=== PATIENT | male | born 2000 | race African-American/Black ===

== ENCOUNTER 2023-05-29 15:33 | Outpatient (REF) | payer OTHER, SELFPAY ==
--- NOTE | ~2023-05-29 | XR_ITS ---
EXAMINATION: XR LUMBOSACRAL SPINE CLINICAL INFORMATION: Acute midline back pain without sciatica COMPARISON: None available. TECHNIQUE: Three views of the lumbosacral spine. FINDINGS: The vertebral bodies and posterior elements are normal. The disc spaces are preserved and the vertebral alignment is normal. The paraspinal soft tissues are normal. XR/XR lumbar spine 2-3V IMPRESSION: Unremarkable examination.
== END 2023-05-29 15:34 | disposition home or self-care (01) ==
LOC: HO.HHCX 15:33
PROVIDERS: Visit Provider Family Medicine
DX: M54.50 Low back pain, unspecified (principal)
CPT/HCPCS: 72100

== ENCOUNTER 2024-02-26 09:02 | Outpatient (REF) | payer SELFPAY ==
[2024-02-26 11:13] LABS: MANUAL DIFF FLAG NO
[2024-02-26 11:23] LABS: Basophils Absolute Auto 0.1 X10*3/uL (0.0-0.2); Basophils Percent Auto 0.7 % (0-2); Eosinophils Absolute Auto 0.1 X10*3/uL (0.0-0.4); Hematocrit 42.6 % (42.0-52.0); Hemoglobin 14.5 g/dl (14.0-18.0); Imm Gran Abs Auto 0.02 X10*3/uL (0.00-0.03); Imm Gran Pct Auto 0.3 % (0.0-0.4); Lymphocytes Absolute Auto 2.4 X10*3/uL (1.2-4.9); Lymphocytes Percent Auto 33.8 % (20-40); Mean Corpuscular Hemoglobin 29.4 pg (27.0-33.0); Mean Corpuscular Volume 86.4 fL (80.0-98.0); Mean Platelet Volume 11.5 fL (9.4-12.4); Monocytes Absolute Auto 0.5 X10*3/uL (0.1-1.2); Neutrophils Percent Auto 56.2 % (45-73); Platelet Count 211 X10*3/uL (160-400); Red Blood Count 4.93 X10*6/uL (4.60-5.80); Red Cell Distribution Width 11.9 % (11.0-16.0); White Blood Count 7.1 X10*3/uL (4.8-10.8)
[2024-02-26 11:42] LABS: Alanine Aminotransferase 7 U/L (0-40); Albumin Level 4.4 g/dL (3.5-5.0); Alkaline Phosphatase 46 U/L (39-117); Anion Gap 9 (12-20); Aspartate Amino Transferase 15 U/L (5-37); Bilirubin Total 0.7 mg/dL (0.0-1.0); Blood Urea Nitrogen 13 mg/dL (9-16); Calcium 9.1 mg/dL (8.4-10.2); Carbon Dioxide 28 mmol/L (22-29); Chloride 107 mmol/L (96-108); Estimated Glomerular Filt Rate > 60; Glucose Random 103 mg/dL (60-115); Potassium 3.8 mmol/L (3.3-5.1); Sodium 140 mmol/L (135-145); Total Protein 7.3 g/dL (6.5-8.0)
[2024-02-26 11:55] LABS: HIV AB/AG Nonreactive (Nonreactive); HIV Num 1 0.04 S/CO (0.00-0.99); ~HepC Num1 0.12 S/CO (0.00-0.79); ~Hepatitis C Antibody Nonreactive (Nonreactive)
== END 2024-02-26 09:03 | disposition home or self-care (01) ==
LOC: HO.HHCL 09:02
PROVIDERS: Visit Provider Internal Medicine Geriatric Medicine
DX: Z00.00 Encounter for general adult medical examination without abnormal findings (principal)
CPT/HCPCS: 36415; 80053; 85025; 86803; 87389